=== PATIENT | female | born 1980 ===

== ENCOUNTER → 2021-08-15 10:14 | Outpatient (BNVA) | payer OTHER, SELFPAY | PROVIDERS: PCP Internal Medicine; Visit Provider Nurse Practitioner Family | DX: G96.810 Intracranial hypotension, unspecified (principal); G43.909 Migraine, unspecified, not intractable, without status migrainosus; E66.9 Obesity, unspecified; Z68.41 Body mass index [BMI] 40.0-44.9, adult | CPT/HCPCS: 99212 ==

== ENCOUNTER → 2021-11-14 09:50 | Outpatient (BNVA) | payer OTHER, SELFPAY | PROVIDERS: PCP Internal Medicine; Visit Provider Nurse Practitioner Family | DX: G96.810 Intracranial hypotension, unspecified (principal); G43.909 Migraine, unspecified, not intractable, without status migrainosus; E66.9 Obesity, unspecified; Z68.41 Body mass index [BMI] 40.0-44.9, adult | CPT/HCPCS: 99212 ==

== ENCOUNTER 2023-04-15 08:53 | Outpatient (AMB) | payer OTHER, SELFPAY ==
--- NOTE | 2023-04-15 09:05 | MHC.OFFVIS ---
Intake Vital Signs 04/15/23 09:12 Height 5 ft 4 in Weight 254 lb 8 oz BMI 43.7 Pulse 73 Pulse Source Pulse Oximeter Pulse Oximetry (%) 99 Intake Visit Reasons: f/u appt for migraines-Confirmed Intake Note: Patient presents for migraines, Patient states My migraines are somewhat better. Allergies No Known Allergies Allergy (Verified 04/15/23 09:13) Medication List - Last Reconciled 04/15/23 by KARTHIKEYAN Hatch acetazolamide 0 mg PO acetazolamide 250 mg PO BID 30 days acetazolamide 125 mg PO QAM 30 days [id number]-[id number] 50-325-40 mg 0 tabs PO magnesium oxide 400 mg PO DAILY 30 days riboflavin (vitamin B2) (Vitamin B-2) 200 mg PO BID sumatriptan succinate 100 mg PO Q2-4H PRN 2 doses HPI HPI Comments History of Present Illness Details 42-yr-old female presents for f/u visit. Pt reports she had COVID-19 a few weeks ago- states it was a mild-mod case w/ runny nose, lost sense of smell, right ear pain, cough- still has hoarse throat and hoarse throat. During that time she developed mid episgastric pain- saw urgent care and was told it was gastritis- she took prilosec for a few days- and this has resolved- now she wonders if it was d/t the cough form the Covid. Headaches have been stable. Using new stronger prescription glasses which are helpful. Using Acetazolamide 250mg bid- decreased when she had COVID-19. Sumatriptan helped but made her legs feel weird- x's 2. She still has frequent voiding. 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 She states she was never able to f/u w/ the weight management team at [facility]. [facility] Medical History HDL lipoprotein deficiency Anemia Anxiety Eczema Metabolic syndrome Spondylolisthesis at L5-S1 level Hiatal hernia Surgical History Hx of tubal ligation Hx of cholecystectomy Family History Father Diabetes Stroke HTN (hypertension) Heart disease Mother Thyroid disease Social History Household Members: Children Housing: House Alcohol intake: current Alcohol intake frequency: holidays/special occasions only Patient Tobacco Use Status: Never used Tobacco Review of Systems Const All systems reviewed & are unremarkable except as noted in HPI and below Physical Exam Vital Signs: Last Vital Signs Pulse 73 04/15/23 09:12 Pulse Ox 99 04/15/23 09:12 BMI result Body Mass Index 43.7 Const General: cooperative and no acute distress Orientation/consciousness: patient oriented x3 HEENT Head: Yes normocephalic Resp Effort & Inspection: normal respiratory effort and able to speak in complete sentences Neuro General: patient oriented x3, gait normal and CN's II-XI intact bilaterally Cognition (Neuro): normal cognition Motor exam (neuro): 5/5 motor strength present throughout Psych Appearance: grossly normal Mental Status: mental status grossly normal Speech and movement: Normal speech and movement present Affect: normal affect Attitude: cooperative Thought process: Normal thought process present Thought content: Normal thought content present Insight: Good insight present (Psych) Judgement: Good judgement present (Psych) Assessment & Plan Assessment & Plan (1) Idiopathic intracranial hypotension: Code(s): G96.810 - Intracranial hypotension, unspecified (2) Migraine: Code(s): G43.909 - Migraine, unspecified, not intractable, without status migrainosus (3) Obesity: Code(s): E66.9 - Obesity, unspecified Plan Resume Acetazolamide 375mg qam and 250mg bid. Riboflavin. May take magnesium as needed. Stop sumatriptan- not tolerated. Try Rizatriptan prn. May use Fioricet prn sparingly. Request labs from PCP. Encouraged pt to f/u w/ weight loss clinic- weight loss is an effective tx option for IIH. f/u in 6 months or sooner prn Medications: New rizatriptan max 2 tabs per day or 4 tabs per week 5 - 10 mg (0.5 - 1 x 10 mg) PO Q2H 21 days PRN 12 tabs 3RF migraine headache Discontinued sumatriptan succinate 1/2 to 1 tab at onset of migraine, may repeat in 2 hours, max 2 tabs per day or 4 tabs per week. Discontinued Reason: Doctor's Order 100 mg PO Q2-4H PRN 12 tabs 6RF migraine headache Coding Level of Care Code Est Pt Level 4 (35866) Diagnoses Idiopathic intracranial hypotension G96.810 Migraine G43.909 Obesity E66.9
[2023-04-15 09:12] VITALS: PULSE 73; O2SAT 99; BMI 43.7
== END 2023-04-15 09:49 | disposition home or self-care (01) ==
PROVIDERS: PCP Internal Medicine; Visit Provider Nurse Practitioner Family
DX: G96.810 Intracranial hypotension, unspecified (principal); G43.909 Migraine, unspecified, not intractable, without status migrainosus; E66.9 Obesity, unspecified
CPT/HCPCS: 99214

== ENCOUNTER → 2023-04-15 08:53 | Outpatient (BNVA) | payer OTHER, SELFPAY | PROVIDERS: PCP Internal Medicine; Visit Provider Nurse Practitioner Family | DX: G43.909 Migraine, unspecified, not intractable, without status migrainosus (principal); G96.810 Intracranial hypotension, unspecified; E66.9 Obesity, unspecified; Z68.43 Body mass index [BMI] 50.0-59.9, adult | CPT/HCPCS: 99212 ==